=== PATIENT | male | born 2000 | race Caucasian/White ===

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

== ENCOUNTER 2023-03-24 09:00 | Outpatient (RCR) | payer OTHER, MEDICARE, MEDICAID, SELFPAY ==
[2023-03-17 08:23] VITALS: BP 98/59; PULSE 89; RESP 18; TEMP 36.1; BMI 24.5
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
[2023-03-24 09:17] VITALS: BP 107/64; PULSE 91; RESP 18; TEMP 35.9; BMI 24.5
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
== END 2023-03-24 23:59 | disposition home or self-care (01) ==
LOC: WC 09:00
PROVIDERS: PCP Family Medicine; Referring Provider Family Medicine; Visit Provider Internal Medicine
DX: L89.013 Pressure ulcer of right elbow, stage 3 (principal); G82.50 Quadriplegia, unspecified
CPT/HCPCS: 11042; 87070; 87075; 87077; 87186; 87205; 99213; G0463

== ENCOUNTER 2023-04-21 09:00 | Outpatient (RCR) | payer OTHER, MEDICARE, MEDICAID, SELFPAY ==
[2023-03-25 00:40] VITALS: BP 107/64; PULSE 91; RESP 18; TEMP 35.9; BMI 24.5
[2023-04-07 09:07] VITALS: BP 95/60; PULSE 84; RESP 18; TEMP 36; BMI 24.5
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
[2023-04-14 08:56] VITALS: BP 102/63; PULSE 88; RESP 16; TEMP 36.1; BMI 24.5
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
[2023-04-21 09:02] VITALS: BP 102/56; PULSE 87; RESP 16; TEMP 35.5; BMI 24.5
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
== END 2023-04-23 23:59 | disposition home or self-care (01) ==
LOC: WC 09:00
PROVIDERS: PCP Family Medicine; Referring Provider Family Medicine; Visit Provider Internal Medicine
DX: L89.013 Pressure ulcer of right elbow, stage 3 (principal); G82.50 Quadriplegia, unspecified
CPT/HCPCS: 11042

== ENCOUNTER 2023-05-19 09:00 | Outpatient (RCR) | payer OTHER, MEDICARE, MEDICAID, SELFPAY ==
[2023-04-24 00:25] VITALS: BP 102/56; PULSE 87; RESP 16; TEMP 35.5; BMI 24.5
[2023-04-28 09:13] VITALS: BP 125/77; PULSE 89; RESP 16; TEMP 36.2; BMI 24.5
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
[2023-05-19 09:08] VITALS: BP 107/62; PULSE 102; RESP 18; TEMP 35.6; BMI 24.5
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
== END 2023-05-24 23:59 | disposition home or self-care (01) ==
LOC: WC 09:00
PROVIDERS: PCP Family Medicine; Referring Provider Family Medicine; Visit Provider Internal Medicine
DX: L89.013 Pressure ulcer of right elbow, stage 3 (principal); G82.50 Quadriplegia, unspecified
CPT/HCPCS: 11042

== ENCOUNTER → 2023-06-09 | Outpatient (CLI) | payer OTHER, MEDICARE, MEDICAID, SELFPAY ==
--- NOTE | 2023-06-09 10:10 | RAD_ITS ---
INDICATION: KIDNEY STONE EXAMINATION/TECHNIQUE: X-RAY - XR Abdomen 1 View COMPARISON: FINDINGS: There is a non-obstructive bowel gas pattern. There is no organomegaly. No abnormal calcifications. Soft tissues and bony structures are unremarkable. RAD/Abdomen Single View IMPRESSION: Non-obstructive bowel gas pattern. Electronically Signed: Jackelyn Serrato MD at 23:41 EST Reading Location ID and State: [id number] / Tel , Service support ,
== END | disposition home or self-care (01) ==
PROVIDERS: PCP Family Medicine; Referring Provider Urology; Visit Provider Urology
DX: N20.0 Calculus of kidney (principal)
CPT/HCPCS: 74018

== ENCOUNTER 2023-06-23 09:00 | Outpatient (RCR) | payer OTHER, MEDICARE, MEDICAID, SELFPAY ==
[2023-05-25 00:42] VITALS: BP 107/62; PULSE 102; RESP 18; TEMP 35.6; BMI 24.5
[2023-06-02 08:54] VITALS: BP 87/51; PULSE 91; RESP 16; TEMP 35.9; BMI 24.5
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
[2023-06-23 08:55] VITALS: BP 88/57; PULSE 96; RESP 16; TEMP 36.1; BMI 24.5
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
== END 2023-06-23 16:19 | disposition home or self-care (01) ==
LOC: WC 09:00
PROVIDERS: PCP Family Medicine; Referring Provider Family Medicine; Visit Provider Internal Medicine
DX: L89.013 Pressure ulcer of right elbow, stage 3 (principal); G82.50 Quadriplegia, unspecified
CPT/HCPCS: 11042; 99213; G0463

== ENCOUNTER → 2024-05-21 | Outpatient (CLI) | payer OTHER, MEDICARE, MEDICAID, SELFPAY ==
--- NOTE | 2024-05-21 12:35 | RAD_ITS ---
HISTORY: FLACCID NEUROPATHIC BLADDER. TECHNIQUE: XR Abdomen 1 View. COMPARISON: 06/09/2023. FINDINGS: BOWEL GAS PATTERN: No dilated bowel loops identified. Scattered stool and air throughout the colon FREE AIR: Not assessed on supine view. CALCIFICATIONS: Increased size of bladder calculi measuring up to 1.8 cm BONES: Chronic hip joint space narrowing. SOFT TISSUES: Retained wires in the abdomen and surgical clips in the right pelvis again seen. RAD/Abdomen Single View IMPRESSION: Non-obstructive bowel gas pattern. Increased size of bladder calculi. Electronically Signed: Mee Xie MD at 8:48 EDT ,
--- NOTE | 2024-05-21 12:35 | US_ITS ---
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 TECHNIQUE: Augustine scale and color doppler images were obtained of the kidneys. 82 images. COMPARISON: XR same day. FINDINGS: RIGHT KIDNEY: 11.5 cm in length. Cortical thickness 1.7 cm cyst. No hydronephrosis. No gross renal mass demonstrated. LEFT KIDNEY: 11.7 cm in length. Cortical thickness 1.7 cm. No hydronephrosis. 5 mm lower pole calculus. URINARY BLADDER: 5 mm wall thickness with a volume of 238 cc. 2.8 cm bladder calculus. US/Kidney and Bladder IMPRESSION: Nonobstructing left renal calculus. Bladder calculus. Electronically Signed: Mee Xie MD at 8:44 EDT ,
== END | disposition home or self-care (01) ==
PROVIDERS: PCP Family Medicine; Referring Provider Urology; Visit Provider Urology
DX: N31.2 Flaccid neuropathic bladder, not elsewhere classified (principal); S14.105S Unspecified injury at C5 level of cervical spinal cord, sequela; X58.XXXS Exposure to other specified factors, sequela
CPT/HCPCS: 74018; 76770

== ENCOUNTER 2024-06-06 11:07 | Day surgery (SDC) | payer OTHER, MEDICARE, MEDICAID, SELFPAY ==
[2024-06-06] VITALS (9 sets, daily range): BP systolic 112–134; BP diastolic 56–83; PULSE 77–90; RESP 16–18; TEMP 36.1–36.6; O2SAT 95–100; BMI 25.1
[2024-06-06] MEDS: Lactated Ringers 1,000 ML 15 ML IV (12:12)
--- NOTE | 2024-06-06 12:13 | PCM.PRE.AN2 ---
ASA Classification* ASA Classification ASA Classification: 3 Assessment & Plan Anesthesia* Anesthesia Assessment Anesthesia Assessment: Discussed sedation and/or anesthesia options, risks, benefits, and alternatives with patient/parents/legal guardian/POA. Questions invited. The patient/parents/legal guardian/POA seems to understand and agrees to proceed with anesthesia plan. Reviewed the physical assessment, medical history, allergy history and patient home medications list prior to surgery/procedure/anesthetic and documented any changes. Performed airway and anesthesia risk assessments. 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 When Was Last Pacemaker Check QUESTION #4 FULL TEXT: You/Your Family Experience fever (hyperthermia) with Anesthesia Last Oral Intake Last Oral intake: Last Oral Intake NPO since 07:00 06/06/24 12:04 Meds taken in AM with sips of Yes 06/06/24 12:04 water? Meds patient instructed to PREGABALIN 06/06/24 12:04 take am of surgery PONV PONV - design engineer agricultural equipment: PONV - design engineer agricultural equipment Female No 05/24/24 14:02 HX of Motion Sickness No 05/24/24 14:02 HX of N/V After Surgery No 05/24/24 14:02 Non-Smoker Yes 05/24/24 14:02 Duration of Surgery greater Yes 05/24/24 14:02 than 60 minutes Number of Risk Factors 2 05/24/24 14:02 PONV Score Moderate Risk 05/24/24 14:02 Height & Weight Height & Weight: Anesthesia: Height & Weight Height 5 ft 11 in 06/06/24 12:04 Weight: 81.647 kg 06/06/24 12:04 Body Mass Index (BMI) 25.1 06/06/24 12:04 Respiratory Assessment Respiratory Assessment - design engineer agricultural equipment: Respiratory Tract Infection Hx - design engineer agricultural equipment Hx Respiratory Tract Infection No 05/24/24 14:02 STOP Sleep Apnea STOP Sleep Apnea - design engineer agricultural equipment: STOP Sleep Apnea - design engineer agricultural equipment Hx Hypertension No 05/24/24 14:02 Hx Sleep Apnea No 05/24/24 14:02 CPAP BIPAP Do you snore loudly (louder No 05/24/24 14:02 than talking or can be heard Do you often feel tired/ No 05/24/24 14:02 fatigued/ sleepy during daytime? Has anyone observed you stop No 05/24/24 14:02 breathing during sleep? STOP Results Negative 05/24/24 14:02 QUESTION #5 FULL TEXT : Do you snore loudly (louder than talking or can be heard through closed doors)? Tobacco Use History Tobacco Use History - design engineer agricultural equipment: Tobacco Use History - design engineer agricultural equipment Tobacco Use Smoking Status Never smoker 05/24/24 14:02 Hx Tobacco Use No 05/24/24 14:02 Years Smoking Packs Smoked per Day Smoking Cessation Date was within the last 15 years Hx Smoking Cessation Date Hx Smoking Cessation Counseling Hematologic Medial History Hematologic Hx - design engineer agricultural equipment: Hematologic Medical Hx - bioinformatics computer scientist Hx of Blood Transfusion Yes 05/24/24 14:02 Hx of Transfusion in last 3 No 05/24/24 14:02 Months Date of Last Transfusion (if within last 3 months) Ever experience any problems No 05/24/24 14:02 with transfusion(s)? Specify any problems Hx of Preganancy in last 3 N/A 05/24/24 14:02 Months Nurse Filling Out Transfusion DSCHRIBER 05/24/24 14:02 & Questions: Date: 05/24/24 05/24/24 14:02 Time: 14:03 05/24/24 14:02 Patient unable to answer at this time (ie. confused, unrespo /Reproduction History /Reproductive History - design engineer agricultural equipment: /Reproductive Hx- design engineer agricultural equipment Hx Now No 05/24/24 14:02 Gestational Age (in weeks): EDC: Hx Hx Para Hx Section SAB No 05/24/24 14:02 Active Medications Active Medications: Current Medications Generic Name Dose Route Start Last Admin Trade Name Freq PRN Reason Stop Dose Admin Cefazolin Sodium 2 gm/ N/A 20 mls @ 400 mls/hr 06/06/24 13:15 IV 06/06/24 13:17 PREOP ONE Lactated Ringer's 1,000 mls @ 15 mls/hr 06/06/24 11:15 06/06/24 12:12 IV 06/09/24 05:54 15 mls/hr .Q48H IGRISH Administration Protocol [facility] Medical History Quadriplegia Hypotension Wears glasses Depression Uses wheelchair Bladder disease Injury of head and neck Non-smoker History of edema Indwelling urethral catheter present Sedated Hx of cardiac pacemaker Decubitus ulcer of right elbow, stage 3 Quadriplegia, post-traumatic Decubitus ulcer of left elbow, stage 3 Home Medications ?Medication ?Instructions ?Recorded ?Last Taken ?Type amitriptyline 25 mg tablet 75 mg PO QHS 06/25/21 Unknown History melatonin 3 mg tablet 15 mg PO QHS 06/25/21 Unknown History pregabalin 300 mg capsule 300 mg PO BID 06/25/21 06/06/24 07:00 History sennosides 8.6 mg tablet (senna) 8.6 mg PO BREAKFAST 06/25/21 Unknown History sertraline 50 mg tablet 50 mg PO QHS 06/25/21 Unknown History cholecalciferol (vitamin D3) 25 25 mcg PO DAILY 05/24/24 Unknown History mcg (1,000 unit) tablet naproxen sodium 220 mg tablet 440 mg PO BID 05/24/24 Unknown History (Aleve) Allergy/AdvReac Type Severity Reaction Status Date / Time methadone Allergy Intermediate Itching Verified 06/06/24 12:02 oxycodone Allergy Intermediate Itching Verified 06/06/24 12:02 Surgical History Hx of cervical spine surgery S/P appendectomy Social History Smoking Status: Never smoker alcohol intake: never substance use type: does not use Review of Systems (Anesthesia) ROS Narrative System reviewed and no additional complaints, except as documented.
--- NOTE | 2024-06-06 14:14 | HP.PCM_ITS ---
HPI - General General Date of Service: 06/06/24 Chief Complaint: Bladder stones HPI Narrative CARLI BOWEN, is a 23 M who presents with Quadra plegia and he uses a catheter during the daytime intermittent catheterization by family and overnight catheter at night he has some large bladder stones that developed risk for infection has been getting infections so we plan to do a cystoscopy laser and remove these bladder stones he will to go home with a catheter. [facility] Medical History Quadriplegia Hypotension Wears glasses Depression Uses wheelchair Bladder disease Injury of head and neck Non-smoker History of edema Indwelling urethral catheter present Sedated Hx of cardiac pacemaker Decubitus ulcer of right elbow, stage 3 Quadriplegia, post-traumatic Decubitus ulcer of left elbow, stage 3 Home Medications ?Medication ?Instructions ?Recorded ?Last Taken ?Type amitriptyline 25 mg tablet 75 mg PO QHS 06/25/21 Unknown History melatonin 3 mg tablet 15 mg PO QHS 06/25/21 Unknown History pregabalin 300 mg capsule 300 mg PO BID 06/25/21 06/06/24 07:00 History sennosides 8.6 mg tablet (senna) 8.6 mg PO BREAKFAST 06/25/21 Unknown History sertraline 50 mg tablet 50 mg PO QHS 06/25/21 Unknown History cholecalciferol (vitamin D3) 25 25 mcg PO DAILY 05/24/24 Unknown History mcg (1,000 unit) tablet naproxen sodium 220 mg tablet 440 mg PO BID 05/24/24 Unknown History (Aleve) ciprofloxacin HCl 500 mg tablet 500 mg PO BID #14 tabs 06/06/24 Unknown Rx (Cipro) Allergy/AdvReac Type Severity Reaction Status Date / Time methadone Allergy Intermediate Itching Verified 06/06/24 12:02 oxycodone Allergy Intermediate Itching Verified 06/06/24 12:02 Surgical History Hx of cervical spine surgery S/P appendectomy Social History Smoking Status: Never smoker alcohol intake: never substance use type: does not use Vital Signs Vital Signs Vital Signs: 06/06/24 12:04 06/06/24 12:04 06/06/24 12:14 Temperature 97.5 F L 97.5 F L Temperature Source Temporal Pulse Rate 77 77 Respiratory Rate 16 16 Respiratory Pattern Normal Blood Pressure 112/56 L 112/56 L Blood Pressure Mean 74 Blood Pressure Source Monitor Blood Pressure Position Left Lateral Blood Pressure Location Right Arm Pulse Ox 97 97 Oxygen Delivery Method Room Air Weight Weight: 81.647 kg Body Mass Index (BMI) 25.1
--- NOTE | 2024-06-06 14:14 | PCM.DC ---
Discharge Instructions Diet Discharge Diet: No restrictions Activity Discharge Activity: Return to Normal Activity and May Not Drive (while taking narcotic pain medications.) Dressing / Incision Call your doctor if you observe: Fever of 101 or Higher Follow Up Care Please Follow Up With: Cisco Barth MD When: Call [phone] for an appointment Test Results: Test results from this visit will be discussed in further detail at your follow-up appointment, if applicable. Discharge Plan Admission Primary Reason for Your Visit: laser bladder stones Attending Provider: Cisco Barht Primary Care Provider: Darian Viveros Instructions Print Language: Andorran Discharge Orders/Prescriptions Prescriptions: New ciprofloxacin HCl [Cipro] 500 mg tablet 500 mg PO BID Qty: 14 0RF Continued sennosides [senna] 8.6 mg Tablet 8.6 mg PO BREAKFAST melatonin 3 mg Tablet 15 mg PO QHS amitriptyline 25 mg Tablet 75 mg PO QHS sertraline 50 mg Tablet 50 mg PO QHS pregabalin 300 mg Capsule 300 mg PO BID cholecalciferol (vitamin D3) 25 mcg (1,000 unit) tablet 25 mcg PO DAILY naproxen sodium [Aleve] 220 mg tablet 440 mg PO BID Referrals / Follow Up: Cisco Barth MD [Med Staff - Active Staff] - Darian Viveros MD [Primary Care Provider] - Disposition Disposition (needs filled in before D/C Order can be placed): Home, Self Care
[2024-06-06] MEDS: Cefazolin 2 GM in Syringe IV (14:25)
--- NOTE | 2024-06-06 15:09 | PCM.OPRPT ---
Operative Report (Standard) Operative Information Surgery/Procedure Performed: Cystolitholapaxy and laser bladder stones Surgeon: Cisco Barth Date of Procedure: 06/06/24 Procedure Start Time: 14:35 Procedure Stop Time: 15:10 Pre-Operative Diagnosis: Large bladder stones Post-Operative Diagnosis: The same Select all DRAINS/GRAFTS/IMPLANTS that apply: Drains Drain details: 16 Korean Berman Type of Anesthesia: General Estimated Blood Loss: None Specimen collected: No Description of surgery: Patient was taken back to the operating room after smooth induction of general anesthesia. The urethra and genitals were prepped and draped in usual sterile fashion. Went into the bladder using a 21 Korean cystoscope. We used the laser bridge through the scope for continuous irrigation. Then using the laser bridge we introduced a laser fiber into the bladder and the stone in the bladder was trapped against the back wall. The stone measured larger than 2,5cm in total size. The stone was then lasered using laser lithotripsy the small little pieces all the pieces were evacuated on the bladder. After all the stones were removed then the scope was removed there was minimal bleeding. Surgical Findings: 2 large stones lasered into little tiny pieces Duplicating Machine Mechanic online content coordinator: No Complications Complications: No Admit VTE Documentation VTE Present on Admission: No VTE Mechan Device Prophylaxis: SCD's VTE Pharm Prophylaxis ordered?: No
--- NOTE | 2024-06-06 15:27 | PCM.POST.ANE ---
Anesthesia: Postop Eval I Current Vital Signs Temperature: 97.8 F Pulse Rate: 80 Blood Pressure: 134/76 Respiratory Rate: 18 Pulse Ox: 100 Oxygen Delivery Method: Room Air Assessment Airway patent: Yes Spontaneous unlabored respirations: Yes Mental status: Asleep nausea: No Vomiting: No Anesthesia Complication: No Fluid Hydration Crystalloid volume administer (ml): 600 Total IV fluid infused: 600 Progress Note Anesthesia document: Postop Eval 1 completed: Yes
--- NOTE | 2024-06-06 17:08 | POSTOPAN2_ITS ---
Anesthesia Postop Eval I Sum Postop Eval Completion status Anesthesia document: Postop Eval 1 completed: Yes Anesthesia Postop Eval I Summary Anesthesia Postop Eval I Summary: Anesthesia Postop Eval I: Assessment Summary Airway patent Yes 06/06/24 15:28 BANKRUPTCY [email or web address].[email or web address] Spontaneous unlabored Yes 06/06/24 15:28 BANKRUPTCY ASSISTANT.CAMPOS respirations Mental status Asleep 06/06/24 15:28 BANKRUPTCY ASSISTANT.MARIO ALBERTOOBY nausea No 06/06/24 15:28 BANKRUPTCY ASSISTANT.MARIO ALBERTOOBCharlette Vomiting No 06/06/24 15:28 BANKRUPTCY ASSISTANT.MARIO ALBERTOOBCharlette Anesthesia Postop Eval I: Fluid Summary Crystalloid volume administer 600 06/06/24 15:28 BANKRUPTCY ASSISTANT.MARIO ALBERTOOBY (ml) Colloids volume administered ( ml) Blood Product volume administered (ml) Total IV fluid infused 600 06/06/24 15:28 BANKRUPTCY ASSISTANT.CAMPOS Anesthesia Postop Eval I: Summary Notes Anesthesia Complication No 06/06/24 15:28 BANKRUPTCY ASSISTANT.CAMPOS Anesthesia Complication Comment: Post-operative progress note Anesthesia: Postop Eval II Evaluation Mental status: Awake and Calm Pain Level: 1 nausea: No Vomiting: No Complications Anesthesia Complication: No
--- NOTE | 2024-06-06 17:08 | PCM.POSTANE2 ---
Anesthesia Postop Eval I Sum Postop Eval Completion status Anesthesia document: Postop Eval 1 completed: Yes Anesthesia Postop Eval I Summary Anesthesia Postop Eval I Summary: Anesthesia Postop Eval I: Assessment Summary Airway patent Yes 06/06/24 15:28 INSURANCE ACCOUNT REPRESENTATIVE.SKOBY Spontaneous unlabored Yes 06/06/24 15:28 INSURANCE ACCOUNT REPRESENTATIVE.CAMPOS respirations Mental status Asleep 06/06/24 15:28 INSURANCE ACCOUNT REPRESENTATIVE.MARIO ALBERTOOBY nausea No 06/06/24 15:28 INSURANCE ACCOUNT REPRESENTATIVE.MARIO ALBERTOOBCharlette Vomiting No 06/06/24 15:28 INSURANCE ACCOUNT REPRESENTATIVE.MARIO ALBERTOOBCharlette Anesthesia Postop Eval I: Fluid Summary Crystalloid volume administer 600 06/06/24 15:28 INSURANCE ACCOUNT REPRESENTATIVE.MARIO ALBERTOOBY (ml) Colloids volume administered ( ml) Blood Product volume administered (ml) Total IV fluid infused 600 06/06/24 15:28 INSURANCE ACCOUNT REPRESENTATIVE.CAMPOS Anesthesia Postop Eval I: Summary Notes Anesthesia Complication No 06/06/24 15:28 INSURANCE ACCOUNT REPRESENTATIVE.CAMPOS Anesthesia Complication Comment: Post-operative progress note Anesthesia: Postop Eval II Evaluation Mental status: Awake and Calm Pain Level: 1 nausea: No Vomiting: No Complications Anesthesia Complication: No
== END 2024-06-06 16:30 | disposition home or self-care (01) ==
LOC: SDC 11:09 → AC 11:10
PROVIDERS: PCP Family Medicine; Referring Provider Urology; Visit Provider Urology
PROC: (CPT 52318; principal; 2024-06-06 13:05)
DX: N21.0 Calculus in bladder (principal); G82.50 Quadriplegia, unspecified; F32.A Depression, unspecified; Z79.899 Other long term (current) drug therapy; Z99.3 Dependence on wheelchair
CPT/HCPCS: 52318; 00910; J7120; J2405

== ENCOUNTER 2024-06-17 12:11 | Emergency (ER) | payer OTHER, MEDICARE, MEDICAID, SELFPAY ==
[2024-06-17 12:12] VITALS: BP 106/70; PULSE 80; RESP 16; TEMP 36.7; O2SAT 98
[2024-06-17 12:32] VITALS: BMI 25.8
[2024-06-17 13:15] VITALS: BP 131/83; PULSE 67; RESP 13; TEMP 36.7; O2SAT 97
[2024-06-17] MEDS: Ondansetron 4 MG/2 ML Vial IV (13:25)
[2024-06-17 13:30] LABS: Mucous, Urine 0 SEEN /hpf (<or=2+); Squamous Epithelial Cells - UA 0 SEEN /hpf (0-5)
[2024-06-17 13:32] LABS: Absolute Lymphocyte Count 1.64 X10^3/uL (0.83-4.51); Basophil# 0.01 X10^3/uL; Basophil% 0.1 % (0-1); Eosinophil# 0.17 X10^3/uL; Eosinophils% 2.4 % (0-5); Hematocrit 44.4 % (40-54); Hemoglobin 15.4 g/dL (13.0-16.5); Lymphocyte # 1.64 X10^3/ul (0.83-4.51); Mean Corp Hgb Conc 34.7 g/dL (32-36); Mean Corpuscular Hgb 32.6 pg (27.0-32.0); Mean Corpuscular Volume 94.1 fL (80-94); Mean Platelet Vol. 9.4 fl (6.2-12.0); Monocyte# 0.35 X10^3/uL; Monocyte% 4.9 % (0-10); NRBC Flagged by Analyzer 0 % (0-5); Neutrophil # 4.95 X10^3/uL (2.7-7.7); Neutrophil % 69.5 % (47-70); Platelet Count 216 K/mm3 (150-450); RBC Distribution Width CV 13.6 % (11.6-14.6); RBC Distribution Width SD 46.9 fl (35.1-43.9); Red Blood Count 4.72 M/mm3 (4.6-6.2); White Blood Count 7.1 K/mm3 (4.4-11.0)
[2024-06-17 13:37] LABS: Color, Urine Straw (Yellow); Glucose, Dipstick Normal (Normal); Ketone-Dipstick Negative (Negative); Leukocyte Esterase-Dipstick 100 /ul (Negative); Nitrite-Dipstick Negative (Negative); Occult Blood-Urine 50 /ul (Negative); Protein-Dipstick Negative (Negative); Urine Bilirubin Dipstick Negative (Negative); Urine Clarity Clear (Clear); Urine Urobilinogen Normal (Normal)
[2024-06-17 13:47] LABS: ALB/GLOB Ratio 1.4 RATIO (0.9-2.4); AST(SGOT) 31 U/L (15-37); Alanine Aminotransfer ALT/SGPT 70 U/L (16-61); Albumin, Serum 4.3 g/dL (3.2-5.0); Alkaline Phosphatase 93 U/L (45-117); Anion Gap 7 (5-15); BUN 7 mg/dL (7-18); BUN/Creat Ratio 19.1 RATIO (10-20); Calcium,Total 9.2 mg/dL (8.5-10.1); Chloride 109 mmol/L (98-107); Creatinine, Serum 0.37 mg/dL (0.70-1.30); EST Glomerular Filtration Rate 317 mL/min (>60); Est Glom Filt Rate - Afr Amer 383 mL/min (>60); Estimated Creatinine Clearance 336.36 ml/min; Glucose 125 mg/dL (74-106); Potassium 3.7 mmol/L (3.5-5.1); Protein, Total 7.3 g/dL (6.4-8.2); Sodium Level 143 mmol/L (136-145)
[2024-06-17 13:58] LABS: Lactic Acid 2.2 mmol/L (0.4-1.9)
[2024-06-17 14:00] VITALS: BP 153/101; PULSE 78; RESP 13; TEMP 36.8; O2SAT 98
[2024-06-17 14:08] LABS: Bacteria 1+ /hpf (None Seen); Red Blood Cells-Urine 25-50 SEEN /hpf (0-5); White Blood Cells 50-100 SEEN /hpf (0-5)
--- NOTE | 2024-06-17 14:14 | EX.ED.DYSGE1 ---
HPI History of Present Illness Chief Complaint: Complaint Informant: patient and parent Narrative Narrative: Patient is a 23-year-old male with history of posttraumatic quadriplegia and neurogenic bladder presenting with chills as well as hematuria. Mother is his primary care is at the bedside to provide history as well. Patient had surgery for bladder stone on 06/[address] Barth. He finished antibiotics on Tuesday, 4 days ago. He was on ciprofloxacin. He regularly is intermittently straight catheterized throughout the day and then has Berman catheter at nighttime. Mother notes that he developed blood with catheterization yesterday and over the night last night he had cranberry juice appearing urine with intermittent clots in it. The Berman was removed around 9 AM. Patient had a dose of Aleve at 915 this morning. Patient is complain of some discomfort of his suprapubic region and states that his bladder feels full. Has associated nausea but no vomiting reported. No fever reported. No other complaints or concerns at this time. No new wounds for his mother. He has otherwise been in his normal state of health. I did speak to his urologist on the phone who recommended placing indwelling Berman catheter for continuous bladder decompression and did not think that the hematuria or possible infection was really associated with the bladder stone surgery. [facility] Medical History Quadriplegia Hypotension Wears glasses Depression Uses wheelchair Bladder disease Injury of head and neck Non-smoker History of edema Indwelling urethral catheter present Sedated Hx of cardiac pacemaker Decubitus ulcer of right elbow, stage 3 Quadriplegia, post-traumatic Decubitus ulcer of left elbow, stage 3 Home Medications ?Medication ?Instructions ?Recorded ?Last Taken ?Type amitriptyline 25 mg tablet 75 mg PO QHS 06/25/21 Unknown History melatonin 3 mg tablet 15 mg PO QHS 06/25/21 Unknown History pregabalin 300 mg capsule 300 mg PO BID 06/25/21 06/06/24 07:00 History sennosides 8.6 mg tablet (senna) 8.6 mg PO BREAKFAST 06/25/21 Unknown History sertraline 50 mg tablet 50 mg PO QHS 06/25/21 Unknown History cholecalciferol (vitamin D3) 25 25 mcg PO DAILY 05/24/24 Unknown History mcg (1,000 unit) tablet naproxen sodium 220 mg tablet 440 mg PO BID 05/24/24 Unknown History (Aleve) ciprofloxacin HCl 500 mg tablet 500 mg PO BID #14 tabs 06/06/24 Unknown Rx (Cipro) sulfamethoxazole 800 1 tab PO Q12H #14 tabs 06/17/24 Unknown Rx mg-trimethoprim 160 mg tablet (Bactrim DS) Allergy/AdvReac Type Severity Reaction Status Date / Time methadone Allergy Intermediate Itching Verified 06/17/24 12:12 oxycodone Allergy Intermediate Itching Verified 06/17/24 12:12 Surgical History Hx of cervical spine surgery S/P appendectomy Social History Smoking Status: Never smoker alcohol intake: never substance use type: does not use ROS ROS ED Constitutional Constitutional ED: Reports chills; Denies fever(s) or sweats Cardiovascular Cardiovascular: Denies chest pain Respiratory/Chest Respiratory/Chest: Denies cough Gastrointestinal Gastrointestinal: Reports nausea; Denies abdominal pain, constipation, diarrhea or vomiting Genitourinary Genitourinary ED: Reports hematuria and other Details: History of neurogenic bladder ; Denies dysuria Musculoskeletal Musculoskeletal: Denies arthralgias or myalgias Neurologic Neurologic: Reports other Details: Quadriplegia from shoulders down Hematologic/Lymphatic Hematologic/Lymphatic: Denies easy bleeding or easy bruising EXAM Physical Exam Const Vital Signs: 06/17/24 12:12 06/17/24 13:15 06/17/24 14:00 Temperature 98.1 F 98.1 F 98.2 F Temperature Source Oral Oral Oral Pulse Rate 80 67 78 Respiratory Rate 16 13 13 Blood Pressure 106/70 131/83 H 153/101 H Blood Pressure Mean 82 99 118 Pulse Ox 98 97 98 Oxygen Delivery Method Room Air Room Air Room Air Positive well nourished and well developed General Appearance ED: well developed and NAD HEENT Reports moist mucous membranes Eyes PERRL Neck supple Neck Narrative: Scarring of the neck consistent with prior tracheostomy Chest Wall inspection of chest normal and palpation of chest normal Resp normal respiratory effort and clear to auscultation bilaterally Cardio regular rate and regular rhythm GI normal to inspection, nondistended, normoactive bowel sounds and non-tender Palpation: soft; Negative for tender or guarding Extremity normal to inspection General Extremety ED: Negative for edema General Extremity: Negative for edema Neuro oriented x3 Neuro Narrative: Quadriplegia from the shoulders down, at his neurologic baseline per mother Sensorium / Orientation: alert Motor Exam: Negative for general weakness Psych mental status grossly normal Skin no rashes or lesions noted and no wounds MDM MDM MDM Narrative Medical decision making narrative: Patient evaluated for hematuria that started yesterday. I also reported chills. Is otherwise well-appearing. Differential includes renal colic, urinary tract infection, sepsis and anemia. Lab work including CBC, CMP, lactate and urinalysis obtained as well as urine culture. Patient does not have a leukocytosis but he does have a mildly elevated lactate of 2.2. Will be given a liter of IV fluids. Kidney function is normal. Urinalysis is consistent with infection with 50-100 white blood cells, 1+ bacteria and 25-50 red blood cells. Will be started on Bactrim. Given first dose in the emergency room. Urine culture is pending. Patient overall is well-appearing with normal vital signs. Maintaining airway stable and afebrile emergency room. Will contact Dr. Barth for further communication about this plan of care is this this is patient. Patient and mother given return precautions. Patient discharged home in stable condition. Lab Data Attestation: I reviewed the patient's lab results. Labs: Laboratory Results - last 24 hr 06/17/24 06/17/24 13:15 13:20 WBC 7.1 RBC 4.72 Hgb 15.4 Hct 44.4 MCV 94.1 H MCH 32.6 H MCHC 34.7 RDW Std Deviation 46.9 H RDW Coeff of Alexys 13.6 Plt Count 216 MPV 9.4 Immature Gran % (Auto) 0.100 Neut % (Auto) 69.5 Lymph % (Auto) 23.0 Glenn % (Auto) 4.9 Eos % (Auto) 2.4 Baso % (Auto) 0.1 Absolute Neuts (auto) 5.0 Absolute Lymphs (auto) 1.64 Nucleated RBC % 0 Sodium 143 Potassium 3.7 Chloride 109 H Carbon Dioxide 27.0 Anion Gap 7 BUN 7 Creatinine 0.37 L Estim Creat Clear Calc 336.36 Est GFR (MDRD) Af Amer 383 Est GFR (MDRD) Non-Af 317 BUN/Creatinine Ratio 19.1 Glucose 125 H Lactic Acid 2.2 H* Calcium 9.2 Total Bilirubin 0.60 AST 31 ALT 70 H Alkaline Phosphatase 93 Total Protein 7.3 Albumin 4.3 Globulin 3.0 Albumin/Globulin Ratio 1.4 Urine Color Straw Urine Clarity Clear Urine pH 8.0 Ur Specific [place] 1.010 Urine Protein Negative Urine Glucose (UA) Normal Urine Ketones Negative Urine Occult Blood 50 H Urine Nitrite Negative Urine Bilirubin Negative Urine Urobilinogen Normal Ur Leukocyte Esterase 100 H Urine RBC 25-50 SEEN Urine WBC 50-100 SEEN Ur Squamous Epith Cells 0 SEEN Urine Bacteria 1+ Urine Mucus 0 SEEN Discharge Plan Triage Chief Complaint: Complaint ED Provider: Cheri Matt Dx/Rx/DC Orders Clinical Impression: Acute hemorrhagic cystitis, Elevated lactic acid level Instructions: ED Bladder Infection, Male (Adult) Prescriptions: New sulfamethoxazole-trimethoprim [Bactrim DS] 800-160 mg tablet 1 tab PO Q12H Qty: 14 0RF No Action sennosides [senna] 8.6 mg Tablet 8.6 mg PO BREAKFAST melatonin 3 mg Tablet 15 mg PO QHS amitriptyline 25 mg Tablet 75 mg PO QHS sertraline 50 mg Tablet 50 mg PO QHS pregabalin 300 mg Capsule 300 mg PO BID cholecalciferol (vitamin D3) 25 mcg (1,000 unit) tablet 25 mcg PO DAILY naproxen sodium [Aleve] 220 mg tablet 440 mg PO BID ciprofloxacin HCl [Cipro] 500 mg tablet 500 mg PO BID Qty: 14 0RF Primary Care Provider: Darian Viveros Referrals: Darian Viveros MD [Primary Care Provider] - Activity Restrictions/Additional Instructions: I spoke with Dr. Barth, he recommends keeping the Berman catheter in for 24 hours or longer if he still having blood in his urine. You may remove it once the blood has cleared. Take the entire course of antibiotics. Please return if he has worsening symptoms or is not improving after 48 hours. Push fluids. Print Language: Irish Disposition Disposition: Home, Self Care
[2024-06-17] MEDS: 0.9% Normal Saline (1000mL) 1,000 ML 999 ML IV (14:27)
[2024-06-17 15:00] VITALS: BP 135/77; PULSE 87; RESP 14; TEMP 36.8; O2SAT 98
[2024-06-17] MEDS: Smz/Tmp Ds Tablet 1 TABLET PO ×2 (15:03→15:24)
--- NOTE | 2024-06-17 15:24 | ED.RN ---
Second dose Bactrim given for pt to take at home. 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 Pt quadraplegic, unable to come back in 2 hours for med.
[2024-06-17 17:27] LABS: Reflex Lactate? Y
== END 2024-06-17 15:34 | disposition home or self-care (01) ==
PROVIDERS: Emergency Provider Emergency Medicine; PCP Family Medicine; Visit Provider Emergency Medicine
DX: N30.01 Acute cystitis with hematuria (principal); G82.50 Quadriplegia, unspecified; R74.02 Elevation of levels of lactic acid dehydrogenase [LDH]
CPT/HCPCS: 51702; 80053; 81001; 83605; 85025; 87086; 96361; 96374; 99285; J7030; A4216; J2405

== ENCOUNTER 2025-01-28 16:27 | Emergency (ER) | payer OTHER, MEDICARE, MEDICAID, SELFPAY ==
[2025-01-28 16:29] VITALS: BP 110/68; PULSE 87; RESP 18; TEMP 36.1; O2SAT 98
--- NOTE | 2025-01-28 21:30 | US_ITS ---
PROCEDURE: VENOUS DUPLEX IMAG/LIMITED/UNI 01/28/2025 REASON FOR EXAM: Right leg swelling TECHNIQUE: VENOUS DUPLEX IMAG/LIMITED/UNI COMPARISON: None. FINDINGS: No intraluminal echogenicity to suggest the presence of a deep venous thrombosis. Appropriate respiratory variation, augmentation and venous compression is noted. US/Venous Duplex Imag/Limited/Uni IMPRESSION: No evidence for DVT in the right lower extremity. Reading Location: [id number]
[2025-01-28 21:32] VITALS: BP 133/77; PULSE 81; RESP 18; O2SAT 98
[2025-01-28 22:33] LABS: AST(SGOT) 79 U/L (<=37); Alanine Aminotransfer ALT/SGPT 136 U/L (<=46); Albumin, Serum 4.2 g/dL (3.5-5.0); Alkaline Phosphatase 100 U/L (40-129); Anion Gap 13 (5-15); BUN 11 mg/dL (4-19); BUN/Creat Ratio 38.7 RATIO (10-20); Calcium,Total 9.1 mg/dL (7.6-11.0); Carbon Dioxide 21.7 mmol/L (21.0-32.0); Chloride 104 mmol/L (98-108); Globulin 2.7 g/dL (2.2-4.2); Glucose 98 mg/dL (70-99); Potassium 4.3 mmol/L (3.3-5.1)
[2025-01-28 23:00] VITALS: BP 126/71
[2025-01-28 23:06] LABS: Hematocrit 43.7 % (40-54); Hemoglobin 14.7 g/dL (13.0-16.5); Immature Granulocytes Count 0.010 X10^3/uL (0.0-0.0); Mean Corp Hgb Conc 33.6 g/dL (32-36); Mean Corpuscular Volume 94.0 fL (80-94); Mean Platelet Vol. 9.3 fl (6.2-12.0); NRBC Flagged by Analyzer 0 % (0-5); Platelet Count 238 K/mm3 (150-450); RBC Distribution Width CV 15.2 % (11.6-14.6); RBC Distribution Width SD 52.5 fl (35.1-43.9); Red Blood Count 4.65 M/mm3 (4.6-6.2); White Blood Count 6.6 K/mm3 (4.4-11.0)
--- NOTE | 2025-01-28 23:32 | EX.ED.DYSGE1 ---
HPI History of Present Illness Chief Complaint: Edema Detail of Chief Complaint: Swelling of lower extremities. Right greater than left. Informant: patient and parent Onset/Context/Timing Onset: Weeks Context: Gradual Onset Timing: Continuous Quality: Swelling of both lower extremities right greater than left Location: Lower extremity exam Current Severity: Moderate Maximum Severity: Moderate Worsened by: Nothing per patient and mother Relieved by: Nothing Associated Symptoms Associated Symptoms: Slight discomfort on the right Narrative Narrative: Patient is a 24-year-old gentleman who is quadriplegic due to a traumatic injury. His doctor is through the [facility]. Mother contacted him because of increasing swelling of his lower extremities. Doctor stated he had to be brought to the emergency room within 4 hours to have an evaluation for DVT. Patient denies chest pain or shortness of breath. There is no prior history of VTE. He does have sensation in his lower extremities and complains of some discomfort in the right leg. There is also some slight discoloration. Mother states she has been elevating it. In spite of this the swelling has gotten worse. He has no known history of kidney disease. He has no known history of cardiac disease. He is dependent on a wheelchair for mobility. He has had decubiti in the past and urinary tract infections. He also has a history of hypotension due to autonomic dysfunction. He denies fever, chills night sweats. Prior similar symptoms: No Recent Illness/Hospitalization: No PFSH PFS Medical History Quadriplegia Hypotension Wears glasses Depression Uses wheelchair Bladder disease Injury of head and neck Non-smoker History of edema Indwelling urethral catheter present Sedated Hx of cardiac pacemaker Decubitus ulcer of right elbow, stage 3 Quadriplegia, post-traumatic Decubitus ulcer of left elbow, stage 3 Home Medications ?Medication ?Instructions ?Recorded ?Last Taken ?Type melatonin 3 mg tablet 15 mg PO QHS 06/25/21 Unknown History pregabalin 300 mg capsule 300 mg PO BID 06/25/21 06/06/24 07:00 History sennosides 8.6 mg tablet (senna) 8.6 mg PO BREAKFAST 06/25/21 Unknown History sertraline 50 mg tablet 50 mg PO QHS 06/25/21 Unknown History cholecalciferol (vitamin D3) 25 25 mcg PO DAILY 05/24/24 Unknown History mcg (1,000 unit) tablet amitriptyline 100 mg tablet 100 mg PO QHS 01/28/25 Unknown History Allergy/AdvReac Type Severity Reaction Status Date / Time methadone Allergy Intermediate Itching Verified 01/28/25 16:29 oxycodone Allergy Intermediate Itching Verified 01/28/25 16:29 Opioids - Morphine Analogues Allergy Itching Verified 01/28/25 16:29 Surgical History Hx of cervical spine surgery S/P appendectomy Social History Smoking Status: Never smoker alcohol intake: never substance use type: does not use ROS ROS ED Constitutional Constitutional ED: Denies chills, fever(s), subjective, sweats or weight loss Eyes Eyes: Denies blurry vision or change in vision Cardiovascular Cardiovascular: Denies chest pain or palpitations Respiratory/Chest Respiratory/Chest: Denies cough, dyspnea or dyspnea on exertion Gastrointestinal Gastrointestinal: Denies abdominal pain, nausea or vomiting Musculoskeletal Musculoskeletal: Denies arthralgias or myalgias Integumentary Denies rash Neurologic Neurologic: Denies headache(s) or paresthesias Endocrine Endocrinology: Denies cold intolerance or heat intolerance Hematologic/Lymphatic Hematologic/Lymphatic: Reports systems reviewed and no addt'l complaints, except as documented EXAM Physical Exam Const Vital Signs: 01/28/25 16:29 01/28/25 20:44 01/28/25 21:32 Temperature 97 F L Temperature Source Temporal Pulse Rate 87 81 Respiratory Rate 18 18 Respiratory Pattern Normal Blood Pressure 110/68 133/77 H Blood Pressure Mean 82 95 Pulse Ox 98 98 Oxygen Delivery Method Room Air Room Air 01/28/25 23:00 Temperature Temperature Source Pulse Rate Respiratory Rate Respiratory Pattern Blood Pressure 126/71 H Blood Pressure Mean 89 Pulse Ox Oxygen Delivery Method Positive well nourished and well developed Constitutional Narrative: Pleasant 24-year-old appears no distress. Vital signs unremarkable. General Appearance ED: well developed and NAD; Negative for pallor HEENT Reports moist mucous membranes HEENT Narrative: Head is atraumatic normocephalic. Ears normal. Nares patent. Eyes PERRL and EOMs intact bilaterally General Eye ED: Negative for pale conjunctiva or scleral icterus Neck Neck Narrative: Patient has a scar due to tracheostomy. Chest Wall inspection of chest normal and palpation of chest normal Resp normal respiratory effort and clear to auscultation bilaterally Cardio regular rate, regular rhythm, S1 normal heart sound, S2 normal heart sound and no murmurs GI normal to inspection, nondistended, normoactive bowel sounds, non-tender, non-distended and no masses; Negative for hepatosplenomegaly Palpation: soft Extremity Negative for normal to inspection Extremity Narrative: There is tenderness posterior right calf. There is discoloration right leg. The right leg is larger in size than the left. There is edema of both lower extremities. General Extremety ED: Yes edema and tenderness General Extremity: edema Neuro oriented x3, CN's II-XII intact bilaterally and No no sensory deficits noted Sensorium / Orientation: alert Motor Exam: Negative for strength 5/5 throughout Psych mental status grossly normal Skin no rashes or lesions noted, no wounds and skin turgor normal General Skin Exam: Negative for jaundice or pallor MDM MDM MDM Narrative Medical decision making narrative: Differential diagnosis is dependent lymphedema, hypoalbuminemia, DVT, renal disease. Workup included CBC to assess H&H. Competence metabolic panel to assess albumin, total protein, electrolytes and renal function. History & Record Review Additional record(s) reviewed:: Prior outpatient record (Records for outside source for pressure ulcer elbow stage III available August 07, 2024. He was seen on May [address] Matt for hemorrhagic cystitis. He was seen earlier that month for bladder calculus.) Lab Data Attestation: I reviewed the patient's lab results. Lab results narrative: CBC is unremarkable. Comprehensive metabolic panel reveals an elevated ALT of 136. BUN to creatinine ratio was elevated 38-1. The BUN and creatinine are normal. Labs: Laboratory Results - last 24 hr 01/28/25 01/28/25 01/28/25 21:37 21:37 22:53 WBC Cancelled 6.6 Corrected WBC Cancelled RBC Cancelled 4.65 Hgb Cancelled 14.7 Hct Cancelled 43.7 MCV Cancelled 94.0 MCH Cancelled 31.6 MCHC Cancelled 33.6 RDW Std Deviation Cancelled 52.5 H RDW Coeff of Alexys Cancelled 15.2 H Plt Count Cancelled 238 MPV Cancelled 9.3 Immature Gran % (Auto) Cancelled 0.200 Neut % (Auto) Cancelled 49.2 Lymph % (Auto) Cancelled 42.1 H [place] % (Auto) Cancelled 5.6 Eos % (Auto) Cancelled 2.6 Baso % (Auto) Cancelled 0.3 Absolute Neuts (auto) Cancelled 3.2 Absolute Lymphs (auto) Cancelled 2.76 Total Counted Cancelled Neutrophils % (Manual) Cancelled Band Neutrophils % Cancelled Lymphocytes % (Manual) Cancelled Monocytes % (Manual) Cancelled Eosinophils % (Manual) Cancelled Basophils % (Manual) Cancelled Metamyelocytes % Cancelled Myelocytes % Cancelled Promyelocytes % Cancelled Blast Cells % Cancelled Plasma Cell % (Manual) Cancelled Other Cells % Cancelled Nucleated RBC % Cancelled 0 Nucleated RBCs/100 WBC Cancelled Differential Comment Cancelled Diff Path Review Cancelled Hypersegmented Neuts Cancelled Atypical Lymphocytes Cancelled Reactive Lymphocytes Cancelled Smudge Cells Cancelled Toxic Granulation Cancelled Toxic Vacuolation Cancelled Dohle Bodies Cancelled Irais Rods Cancelled Platelet Estimate Cancelled Plt Morphology Comment Cancelled RBC Morphology Cancelled Cancelled Polychromasia Cancelled Hypochromasia Cancelled Basophilic Stippling Cancelled Anisocytosis Cancelled Microcytosis Cancelled Macrocytosis Cancelled Spherocytes Cancelled Sickle Cells Cancelled Target Cells Cancelled Tear Drop Cells Cancelled Ovalocytes Cancelled Stomatocytes Cancelled [place] Bodies Cancelled Rumely Cells Cancelled Bite Cells Cancelled Crenated Cell Cancelled Acanthocytes (Spur) Cancelled Rouleaux Cancelled Schistocytes Cancelled Sodium 139 Potassium 4.3 Chloride 104 Carbon Dioxide 21.7 Anion Gap 13 BUN 11 Creatinine 0.28 L Est GFR (MDRD) Non-Af 176 BUN/Creatinine Ratio 38.7 H Glucose 98 Calcium 9.1 Total Bilirubin 0.50 AST 79 H ALT 136 H Alkaline Phosphatase 100 Total Protein 6.9 Albumin 4.2 Globulin 2.7 Albumin/Globulin Ratio 1.6 Radiography Diagnostic Testing: Clinical Impression(s) from Imaging Studies Venous Duplex 01/28/25 21:30 IMPRESSION: No evidence for DVT in the right lower extremity. Reading Location: [facility] The venous duplex study was interpreted by radiologist as negative. Patient and mother were informed of results. Discharge Plan Triage Chief Complaint: Edema ED Provider: Juan Luis Anand Dx/Rx/DC Orders Clinical Impression: Lymphedema of both lower extremities, Quadriplegia, post-traumatic Instructions: ED Peripheral Edema, Bilateral Prescriptions: No Action sennosides [senna] 8.6 mg Tablet 8.6 mg PO BREAKFAST melatonin 3 mg Tablet 15 mg PO QHS sertraline 50 mg Tablet 50 mg PO QHS pregabalin 300 mg Capsule 300 mg PO BID cholecalciferol (vitamin D3) 25 mcg (1,000 unit) tablet 25 mcg PO DAILY amitriptyline 100 mg tablet 100 mg PO QHS Primary Care Provider: Darian Viveros Referrals: Darian Viveros MD [Primary Care Provider] - 1 Week if not improving Activity Restrictions/Additional Instructions: You need to keep Izaiah's legs elevated for longer period of time. The swelling is due to his legs being in a dependent position. Print Language: Azeri Disposition Disposition: Home, Self Care
[2025-01-29] VITALS: BP 102/81; PULSE 71; RESP 16; TEMP 36.8; O2SAT 99
== END 2025-01-29 00:01 | disposition home or self-care (01) ==
PROVIDERS: Emergency Provider Emergency Medicine; PCP Family Medicine; Visit Provider Emergency Medicine
DX: I89.0 Lymphedema, not elsewhere classified (principal); G82.50 Quadriplegia, unspecified; Z99.3 Dependence on wheelchair
CPT/HCPCS: 80053; 85025; 93971; 99282; A4216